=== PATIENT | male | born 1995 | race Caucasian/White ===

== ENCOUNTER 2023-01-17 13:37 | Emergency (ER) | payer MEDICAID ==
[~2023-01-17] VITALS: Ht 167.6 cm; Wt 80.0 kg
[2023-01-17 14:22] VITALS: TEMP 99.4; O2SAT 96
[2023-01-17 16:31] VITALS: BP 133/77; PULSE 68; RESP 16
== END 2023-01-17 16:32 | disposition home or self-care (01) ==
LOC: ER 13:37
DX: S93.401A Sprain of unspecified ligament of right ankle, initial encounter (principal); W50.2XXA Accidental twist by another person, initial encounter; Y93.89 Activity, other specified; Y92.89 Other specified places as the place of occurrence of the external cause; Y99.8 Other external cause status
CPT/HCPCS: 73610; 99283; Z7610